=== PATIENT | male | born 1995 | race Caucasian/White ===

== ENCOUNTER 2019-01-03 14:24 | Emergency (ER) | payer BC ==
[~2019-01-03] VITALS: Ht 172.7 cm; Wt 74.8 kg
[2019-01-03 14:30] VITALS: BP 150/110
== END 2019-01-03 16:14 | disposition home or self-care (01) ==
LOC: ER 14:24
DX: S10.86XA Insect bite of other specified part of neck, initial encounter (principal); Z87.891 Personal history of nicotine dependence; W57.XXXA Bitten or stung by nonvenomous insect and other nonvenomous arthropods, initial encounter; Y93.89 Activity, other specified; Y92.89 Other specified places as the place of occurrence of the external cause; Y99.8 Other external cause status